=== PATIENT | male | born 1945 | race Caucasian/White ===

== ENCOUNTER 2017-02-23 09:34 | Day surgery (SDC) | payer OTHER ==
[2017-02-22 14:50] VITALS: BMI 25.8
[2017-02-23] MEDS ORDERED: PROPOFOL 20 ML ONE ×4 (11:55)
[2017-02-23 12:37] VITALS: TEMP 97.5
[2017-02-23 13:02] VITALS: PULSE 56
[2017-02-23 14:02] VITALS: BP 146/91
--- NOTE | 2017-02-24 12:57 | PATH ---
Surgical Pathology Report Patient Name: LUIS DANIEL HART [facility]. Rec. #: [id number] /Age/Gender: 1945 (Age: 71) / M Account: [id number] Location: ASU-ENDOSCOPY Taken: 02/23/2017 Received: 02/23/2017 Reported: 02/24/2017 Physicians: Sony Townsend M.D. Specimen(s) Received BX PROXIMAL TRANSVERSE COLON POLYP Clinical History History of colon polyp Polyp, diverticulosis Final Diagnosis COLON, PROXIMAL TRANSVERSE, BIOPSY: HYPERPLASTIC POLYP WITH ASSOCIATED ULCERATION. Electronically Signed Manjinder Beyer M.D. Gross Description Received in formalin, labeled "biopsy proximal transverse colon polyp" is a chapman, irregular portion of soft tissue measuring 0.3 cm. in greatest dimension. The specimen is submitted in toto in one cassette. 02/23/201702/23/2017
== END 2017-02-23 12:40 | disposition home or self-care (01) ==
LOC: JASU-ENDO 09:34
PROVIDERS: ATTEND Internal Medicine Gastroenterology
PROC: 0DBL8ZX Excision of Transverse Colon, Via Natural or Artificial Opening Endoscopic, Diagnostic (ICD-10-PCS; principal; 2017-02-23 10:30)
DX: Z12.11 Encounter for screening for malignant neoplasm of colon (principal); Z86.010 Personal history of colon polyps; D12.3 Benign neoplasm of transverse colon; K57.30 Diverticulosis of large intestine without perforation or abscess without bleeding
CPT/HCPCS: 88305-TC

== ENCOUNTER 2017-08-22 15:05 | Observation (INO) | payer OTHER, MEDICARE ==
[2017-08-22 15:18] VITALS: BMI 25.4
--- NOTE | 2017-08-22 15:55 | PDOC ---
History of Present Illness - General Chief Complaint: Syncope/Near Syncope Stated Complaint: SYNCOPE Time Seen by Provider: 08/22/17 15:11 History Source: Patient, Spouse - History of Present Illness Initial Comments: 08/22/17 15:50 Patient is a 72 yo M with a PMH of A-Fib, HTN , CVA (5 times), presented today after a syncopial episode while getting up quickly from eating at the table. His says she heard a noise on the floor and ran to see him. He woke up after a few seconds and looked pale. She said he did not have any shaking movements or post-ictal state. Patient denies this ever happening before. He denies biting his tongue, losing bladder control or hit his head. He denies SOB , chest pain, nausea, or diarrhea. 08/22/17 17:20 Past History - Past Medical History Allergies/Adverse Reactions: Allergies Allergy/AdvReac Type Severity Reaction Status Date / Time No Known Allergies Allergy Verified 08/22/17 15:18 Home Medications: Ambulatory Orders Amlodipine Besylate [Norvasc -] 2.5 mg PO HS 02/22/17 Apixaban [Eliquis] 5 mg PO DAILY 02/22/17 Atorvastatin Calcium 40 mg PO DAILY 02/22/17 Carvedilol 25 mg PO BID 02/22/17 Clonidine HCl 0.1 mg PO BID 02/22/17 Losartan Potassium 50 mg PO BID 02/22/17 Anemia: No Asthma: No Cancer: No Cardiac Disorders: No CVA: Yes (MULTIPLE STROKES) COPD: No Dementia: No Diabetes: No GI Disorders: No Disorders: No HTN: Yes Hypercholesterolemia: Yes Liver Disease: No Seizures: No Thyroid Disease: No - Surgical History Abdominal Surgery: No Appendectomy: No Cardiac Surgery: No Cholecystectomy: No Lung Surgery: No Neurologic Surgery: No Orthopedic Surgery: No - Immunization History Immunization Up to Date: Yes - Suicide/Smoking/Psychosocial Hx Smoking Status: No Smoking History: Never smoked Years of Tobacco Use: 0 Number of Cigarettes Smoked Daily: 0 Cigars Per Day: 0 Information on smoking cessation initiated: No Hx Alcohol Use: No Drug/Substance Use Hx: No Substance Use Type: None Hx Substance Use Treatment: No Cardiac Specific PMH - Complaint Specific PMHX Pacemaker: No Review of Systems - Review of Systems Constitutional: No: Chills, Diaphoresis, Fever HEENTM: No: Recent change in vision Respiratory: No: Cough, Shortness of Breath, Wheezing, Hemoptysis Cardiac (ROS): Yes: Syncope. No: Chest Pain, Palpitations : No: Incontinence Neurological: Yes: Tingling (tingling of his face before he fell). No: Headache , Paresthesia, Seizure *Physical Exam - Vital Signs Last Vital Signs Temp Pulse Resp BP Pulse Ox 98.3 F 59 L 18 158/91 98 08/22/17 20:16 08/22/17 20:16 08/22/17 20:16 08/22/17 20:16 08/22/17 20:16 - Physical Exam General Appearance: Yes: Nourished, Appropriately Dressed. No: Apparent Distress HEENT: positive: EOMI Neck: positive: Supple Respiratory/Chest: positive: Lungs Clear, Normal Breath Sounds. negative: Respiratory Distress, Rales, Rhonchi, Wheezing Gastrointestinal/Abdominal: positive: Normal Bowel Sounds, Soft. negative: Tender Neurologic: positive: child & adolescent psychiatrist II-XII NML intact, Fully Oriented, Alert, Motor Strength / ED Treatment Course - LABORATORY CBC & Chemistry Diagram: 08/22/17 16:20 08/22/17 16:20 - ADDITIONAL ORDERS Additional order review: Laboratory Results 08/22/17 08/22/17 08/22/17 16:20 16:20 16:20 PT with INR INR PTT (Actin FS) Sodium 141 Potassium 3.6 Chloride 105 Carbon Dioxide 31 Anion Gap 5 L BUN 15 Creatinine 1.3 Creat Clearance w eGFR 54.57 Random Glucose 71 L Lactic Acid 1.3 Calcium 7.5 L Total Bilirubin 1.2 H AST 15 ALT 26 Alkaline Phosphatase 65 Creatine Kinase 104 Troponin I < 0.02 B-Natriuretic Peptide 1198.90 H Total Protein 6.3 L Albumin 3.2 L Blood Type Antibody Screen 08/22/17 08/22/17 16:20 16:20 PT with INR 15.60 H INR 1.38 H PTT (Actin FS) 29.6 Sodium Potassium Chloride Carbon Dioxide Anion Gap BUN Creatinine Creat Clearance w eGFR Random Glucose Lactic Acid Calcium Total Bilirubin AST ALT Alkaline Phosphatase Creatine Kinase Troponin I B-Natriuretic Peptide Total Protein Albumin Blood Type B POSITIVE Antibody Screen Negative 08/22/17 16:20 RBC 4.71 MCV 84.8 MCHC 33.7 RDW 14.0 MPV 9.9 Neutrophils % 73.9 Lymphocytes % 13.0 Monocytes % 9.8 Eosinophils % 2.3 Basophils % 1.0 - RADIOLOGY Radiology Studies Ordered: Category Date Time Status HEAD CT WITHOUT CONTRAST [CT] Stat CT Scan 08/22/17 17:16 Taken Medical Decision Making - Medical Decision Making 08/22/17 16:01 #Syncopial Episode Possibly Orthostatic hypotension vs Cardiac Heat CT CBC, CMP, LA WNL CXR cardiac monitoring BNP: 1198.90 Hx of A-fib Admit Tele- Obs for cardiac monitoring. 08/22/17 17:15 *DC/Admit/Observation/Transfer Diagnosis at time of Disposition: Syncope Qualifiers: Syncope type: unspecified Qualified Code(s): R55 - Syncope and collapse; R55 - Syncope and collapse - Discharge Dispostion Condition at time of disposition: Fair Admit: Yes Decision to Admit order Date/Time: Decision to Admit Order Category Date Time Status Decision to Admit to Hospital Routine Admission 08/22/17 19:24 Active - Referrals Referrals: Irene Haney [Primary Care Provider] -
[2017-08-22 16:33] LABS: EOSINOPHIL 2.3 % (0-4.5); MCH 28.6 pg (25.7-33.7); MCHC 33.7 g/dl (32.0-35.9); MEAN CELL VOLUME 84.8 fl (80-96); MEAN PLT VOLUME 9.9 fl (7.5-11.1); NEUTROPHILS 73.9 % (42.8-82.8); PLATELET COUNT 157 K/MM3 (134-434); WHITE BLOOD COUNT 9.6 K/mm3 (4.0-10.0)
[2017-08-22 16:47] LABS: INR 1.38 (0.82-1.09); PROTHROMBIN TIME (PATIENT) 15.6 SEC (9.98-11.88)
[2017-08-22 16:50] LABS: ACTIVATED PTT 29.6 SECONDS (26.9-34.4)
[2017-08-22 17:04] LABS: ALBUMIN 3.2 g/dl (3.4-5.0); ANION GAP 5 (8-16); BILIRUBIN,TOTAL 1.2 mg/dL (0.2-1.0); CALCIUM 7.5 mg/dL (8.5-10.1); CO2 31 mmol/L (21-32); CREATININE 1.3 mg/dL (0.7-1.3); GLUCOSE,RANDOM 71 mg/dL (74-106); SGOT/AST 15 U/L (15-37); SGPT/ALT 26 U/L (12-78); TOT PROT 6.3 g/dl (6.4-8.2)
[2017-08-22 17:05] LABS: ALK PHOS 65 U/L (45-117); CPK 104 IU/L (39-308)
[2017-08-22 17:06] LABS: TROPONIN I < 0.02 ng/ml (0.00-0.05)
--- NOTE | 2017-08-22 17:18 | PDOC ---
Attending Attestation - Resident Resident Name: Pete Vegaashutosh - ED Attending Attestation I have performed the following: I have examined & evaluated the patient, The case was reviewed & discussed with the resident, I agree w/resident's findings & plan, Exceptions are as noted - HPI HPI: 08/22/17 17:14 72 yo M with PMH of A-Fib, HTN , CVA, presents with syncopal episode. Pt states that he got up from a seated position, subsequently felt very lightheaded, and lost consciousness. Pt denies CP/SOB/palpitations prior to or after the event. He reports feeling very weak upon awakening. Pt's did not witness the event but states that she found him on the floor after she heard a thud. She did not witness any convulsive activity. Pt denies tongue biting, denies incontinence. He states that he is now asymptomatic. Pt denies MULLIGAN/N/V. Denies neck pain. Denies weakness/numbness in any extremity. - Physicial Exam PE: 08/22/17 17:19 "GENERAL: Awake, alert, and fully oriented, in no acute distress HEAD: No signs of trauma EYES: PERRLA, EOMI, sclera anicteric, conjunctiva clear ENT: Auricles normal inspection, hearing grossly normal, nares patent, oropharynx clear without exudates. Moist mucosa NECK: Nontender, no stepoffs, Normal ROM, supple, no lymphadenopathy, JVD, or masses LUNGS: Breath sounds equal, clear to auscultation bilaterally. No wheezes, and no crackles HEART: Regular rate and rhythm, normal S1 and S2, no murmurs, rubs or gallops ABDOMEN: Soft, nontender, normoactive bowel sounds. No guarding, no rebound. No masses EXTREMITIES: Normal range of motion, no edema. No clubbing or cyanosis. No cords, erythema, or tenderness NEUROLOGICAL: Cranial nerves II through XII intact. 5/5 strength and sensation in all extremities, Normal speech, normal gait SKIN: Warm, Dry, normal turgor, no rashes or lesions noted. " - Medical Decision Making 08/22/17 17:19 72 M with syncopal episode. Likely orthostatic in the context of getting up from seated position. However, pt with afib and significant cardiac disease. Cannot rule out cardiac syncope. Labs also reveal elevated BNP. Pt with mild pitting edema on exam. No prior diagnosis of heart failure, but exam concerning for CHF. Given possibility of structural heart disease and known afib, pt will need admission for tele monitoring. - Labs, trop - CXR - CTH given fall on eliquis, though no evidence of head trauma - Admit tele
[2017-08-22 20:42] LABS: URINE APPEARANCE CLEAR; URINE BILIRUBIN NEGATIVE (NEGATIVE); URINE BLOOD NEGATIVE (NEGATIVE); URINE COLOR YELLOW; URINE GLUCOSE (UA) NEGATIVE (NEGATIVE); URINE KETONE NEGATIVE (NEGATIVE); URINE NITRITE NEGATIVE (NEGATIVE); URINE PROTEIN NEGATIVE (NEGATIVE)
--- NOTE | 2017-08-22 22:20 | HP ---
CHIEF COMPLAINT: Syncope PCP: Dr. Irene Haney ([facility]) Cigar Machine Feeder: Dr. Corona Bean ([phone]) HISTORY OF PRESENT ILLNESS: This is a 72y/o man with a past medical history of Hypertension, Afib (on Eliquis), CVA (no residual, 2014). Who presents to the ED for syncope x today. Patient reports feeling lightheaded and dizzy before getting up from the table at home, his S.O. heard a loud noise and found the patient on the floor. Patient reports having a tingling sensation to his face- now resolved. Patient denies head trauma. Patient denies fever, chills, cough, SOB, MULLIGAN, CP, AP, N/V/D , dysuria. 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., retired IT Family History: Father: Cardiac Mother: Unknown Cancer, Allergies No Known Allergies Allergy (Verified 08/22/17 15:18) HOME MEDICATIONS: Home Medications Medication Instructions Recorded Amlodipine Besylate [Norvasc -] 2.5 mg PO HS 02/22/17 Apixaban [Eliquis] 5 mg PO DAILY 02/22/17 Atorvastatin Calcium 40 mg PO DAILY 02/22/17 Carvedilol 25 mg PO BID 02/22/17 Clonidine HCl 0.1 mg PO BID 02/22/17 Losartan Potassium 50 mg PO BID 02/22/17 REVIEW OF SYSTEMS CONSTITUTIONAL: Absent: fever, chills, diaphoresis, generalized weakness, malaise, loss of appetite, weight change HEENT: Absent: rhinorrhea, nasal congestion, throat pain, throat swelling, difficulty swallowing, mouth swelling, ear pain, eye pain, visual changes CARDIOVASCULAR: syncope, lightheadedness, Absent: chest pain, palpitations, irregular heart rate, peripheral edema RESPIRATORY: Absent: cough, shortness of breath, dyspnea with exertion, orthopnea, wheezing, stridor, hemoptysis GASTROINTESTINAL: Absent: abdominal pain, abdominal distension, nausea, vomiting, diarrhea, constipation, melena, hematochezia GENITOURINARY: Absent: dysuria, frequency, urgency, hesitancy, hematuria, flank pain, genital pain MUSCULOSKELETAL: Absent: myalgia, arthralgia, joint swelling, back pain, neck pain SKIN: Absent: rash, itching, pallor HEMATOLOGIC/IMMUNOLOGIC: Absent: easy bleeding, easy bruising, lymphadenopathy, frequent infections ENDOCRINE: Absent: unexplained weight gain, unexplained weight loss, heat intolerance, cold intolerance NEUROLOGIC: dizziness Absent: headache, focal weakness or paresthesias, unsteady gait, seizure, mental status changes, bladder or bowel incontinence PSYCHIATRIC: Absent: anxiety, depression, suicidal or homicidal ideation, hallucinations. PHYSICAL EXAMINATION Vital Signs - 24 hr 08/22/17 20:16 Temperature 98.3 F Pulse Rate [ 59 L Radial] Respiratory 18 Rate Blood Pressure 158/91 [Right Arm] O2 Sat by Pulse 98 Oximetry (%) GENERAL: Awake, alert, and fully oriented, in no acute distress. HEAD: Normal with no signs of trauma. EYES: Pupils equal, round and reactive to light, extraocular movements intact, sclera anicteric, conjunctiva clear. No lid lag. EARS, NOSE, THROAT: Ears normal, nares patent, oropharynx clear without exudates. Dry mucous membranes. NECK: Normal range of motion, supple without lymphadenopathy, JVD, or masses. LUNGS: Breath sounds equal, clear to auscultation bilaterally. No wheezes, and no crackles. No accessory muscle use. HEART: Normal S1 and S2 without murmur, rub or gallop. Irregular rate and rhythm ABDOMEN: Soft, nontender, not distended, normoactive bowel sounds, no guarding, no rebound, no masses. No hepatomegaly or splenomegaly. MUSCULOSKELETAL: Normal range of motion at all joints. No bony deformities or tenderness. No CVA tenderness. UPPER EXTREMITIES: 2+ pulses, warm, well-perfused. No cyanosis. No clubbing. No peripheral edema. LOWER EXTREMITIES: 2+ pulses, warm, well-perfused. No calf tenderness. +1 B/L pitting peripheral edema. NEUROLOGICAL: Cranial nerves II-XII intact. Normal speech. Normal gait. PSYCHIATRIC: Cooperative. Good eye contact. Appropriate mood and affect. SKIN: Warm, dry, normal turgor, no rashes or lesions noted, normal capillary refill. Laboratory Results - last 24 hr 08/22/17 08/22/17 08/22/17 16:20 16:20 16:20 WBC 9.6 RBC 4.71 Hgb 13.5 Hct 39.9 MCV 84.8 MCH 28.6 MCHC 33.7 RDW 14.0 Plt Count 157 MPV 9.9 Neutrophils % 73.9 Lymphocytes % 13.0 Monocytes % 9.8 Eosinophils % 2.3 Basophils % 1.0 PT with INR 15.60 H INR 1.38 H PTT (Actin FS) 29.6 Sodium Potassium Chloride Carbon Dioxide Anion Gap BUN Creatinine Creat Clearance w eGFR Random Glucose Lactic Acid Calcium Phosphorus Magnesium Total Bilirubin AST ALT Alkaline Phosphatase Creatine Kinase Troponin I B-Natriuretic Peptide Total Protein Albumin Triglycerides Cholesterol Total LDL Cholesterol HDL Cholesterol Urine Color Urine Appearance Urine pH Ur Specific [place] Urine Protein Urine Glucose (UA) Urine Ketones Urine Blood Urine Nitrite Urine Bilirubin Urine Urobilinogen Ur Leukocyte Esterase Blood Type B POSITIVE Antibody Screen Negative 08/22/17 08/22/17 08/22/17 16:20 16:20 16:20 WBC RBC Hgb Hct MCV MCH MCHC RDW Plt Count MPV Neutrophils % Lymphocytes % Monocytes % Eosinophils % Basophils % PT with INR INR PTT (Actin FS) Sodium 141 Potassium 3.6 Chloride 105 Carbon Dioxide 31 Anion Gap 5 L BUN 15 Creatinine 1.3 Creat Clearance w eGFR 54.57 Random Glucose 71 L Lactic Acid 1.3 Calcium 7.5 L Phosphorus Magnesium Total Bilirubin 1.2 H AST 15 ALT 26 Alkaline Phosphatase 65 Creatine Kinase 104 Troponin I < 0.02 B-Natriuretic Peptide 1198.90 H Total Protein 6.3 L Albumin 3.2 L Triglycerides Cholesterol Total LDL Cholesterol HDL Cholesterol Urine Color Urine Appearance Urine pH Ur Specific [place] Urine Protein Urine Glucose (UA) Urine Ketones Urine Blood Urine Nitrite Urine Bilirubin Urine Urobilinogen Ur Leukocyte Esterase Blood Type Antibody Screen 08/22/17 08/23/17 08/23/17 20:36 06:54 06:54 WBC 7.2 RBC 4.53 Hgb 13.1 Hct 38.1 MCV 84.2 MCH 28.9 MCHC 34.3 RDW 13.9 Plt Count 154 MPV 9.9 Neutrophils % 60.3 Lymphocytes % 25.9 D Monocytes % 9.1 Eosinophils % 3.8 Basophils % 0.9 PT with INR INR PTT (Actin FS) Sodium 141 Potassium 3.2 L Chloride 105 Carbon Dioxide 30 Anion Gap 6 L BUN 15 Creatinine 1.1 Creat Clearance w eGFR Random Glucose 109 H D Lactic Acid Calcium 7.6 L Phosphorus 3.1 Magnesium 2.1 Total Bilirubin AST ALT Alkaline Phosphatase Creatine Kinase Troponin I B-Natriuretic Peptide Total Protein Albumin Triglycerides Cholesterol Total LDL Cholesterol HDL Cholesterol Urine Color Yellow Urine Appearance Clear Urine pH 7.0 Ur Specific [place] 1.010 Urine Protein Negative Urine Glucose (UA) Negative Urine Ketones Negative Urine Blood Negative Urine Nitrite Negative Urine Bilirubin Negative Urine Urobilinogen 2.0 Ur Leukocyte Esterase Negative Blood Type Antibody Screen 08/23/17 08/23/17 06:54 06:54 WBC RBC Hgb Hct MCV MCH MCHC RDW Plt Count MPV Neutrophils % Lymphocytes % Monocytes % Eosinophils % Basophils % PT with INR INR PTT (Actin FS) Sodium Potassium Chloride Carbon Dioxide Anion Gap BUN Creatinine Creat Clearance w eGFR Random Glucose Lactic Acid Calcium Phosphorus Magnesium Total Bilirubin AST ALT Alkaline Phosphatase Creatine Kinase 96 Troponin I < 0.02 B-Natriuretic Peptide Total Protein Albumin Triglycerides 73 Cholesterol 106 Total LDL Cholesterol 45 HDL Cholesterol 51 Urine Color Urine Appearance Urine pH Ur Specific [place] Urine Protein Urine Glucose (UA) Urine Ketones Urine Blood Urine Nitrite Urine Bilirubin Urine Urobilinogen Ur Leukocyte Esterase Blood Type Antibody Screen Laboratory Results - last 24 hr 08/22/17 20:36 Urine Color Yellow Urine Appearance Clear Urine pH 7.0 Urine Protein Negative Urine Glucose (UA) Negative Urine Ketones Negative Urine Blood Negative Urine Nitrite Negative Urine Bilirubin Negative Urine Urobilinogen 2.0 ASSESSMENT/PLAN: This is a 72 y/o man with a PMHx of: HTN, HLD, Afib (on Eliquis). Placed on Tele Observation for Syncope r/o ACS for further evaluation of their emergent condition. Plan: 1. Syncope - r/o ACS vs Dehydration - Tele monitoring - CT Head- no ICH - Will repeat CT tomorrow - Serial Enzymes - Appreciate Cardiology Consult - Echo in am - Carotid Doppler in am - Orthostatics - Repeat CBC, BMP in am 2. Atrial Fibrillation - [id number] Score 4 - Continue Eliquis - EKG - Afib rate controlled 3. Hypertension - Monitor BP - Will continue home meds with parameters - Monitor renal function 4. FEN - Tolerates PO Fluids - Replete lytes prn - Low Na Diet 5. DVT Prophylaxis - OOB - SCDs - Continue Eliquis Code Status: Full Code Problem List - Problem (1) Syncope Code(s): R55 - SYNCOPE AND COLLAPSE Qualifiers: Syncope type: unspecified Qualified Code(s): R55 - Syncope and collapse ; R55 - Syncope and collapse (2) A-fib Code(s): I48.91 - UNSPECIFIED ATRIAL FIBRILLATION (3) HTN (hypertension) Code(s): I10 - ESSENTIAL (PRIMARY) HYPERTENSION (4) CVA (cerebral vascular accident) Code(s): I63.9 - CEREBRAL INFARCTION, UNSPECIFIED Visit type - Emergency Visit Emergency Visit: Yes ED Registration Date: 08/22/17 Care time: The patient presented to the Emergency Department on the above date and was hospitalized for further evaluation of their emergent condition. - New Patient This patient is new to me today: Yes Date on this admission: 08/23/17 - Critical Care Critical Care patient: No
[2017-08-22 23:11] LABS: URINE LEUK ESTERASE Negative (NEGATIVE)
[2017-08-23 07:16] LABS: BASOPHIL 0.9 % (0-2.0); EOSINOPHIL 3.8 % (0-4.5); MCH 28.9 pg (25.7-33.7); MCHC 34.3 g/dl (32.0-35.9); MEAN CELL VOLUME 84.2 fl (80-96); MEAN PLT VOLUME 9.9 fl (7.5-11.1); NEUTROPHILS 60.3 % (42.8-82.8); PLATELET COUNT 154 K/MM3 (134-434); RDW 13.9 % (11.9-15.9); WHITE BLOOD COUNT 7.2 K/mm3 (4.0-10.0)
[2017-08-23 07:34] LABS: ANION GAP 6 (8-16); CALCIUM 7.6 mg/dL (8.5-10.1); CO2 30 mmol/L (21-32); CREATININE 1.1 mg/dL (0.7-1.3); GLUCOSE,RANDOM 109 mg/dL (74-106); MAGNESIUM 2.1 mg/dL (1.8-2.4); PHOSPHOROUS 3.1 mg/dL (2.5-4.9)
[2017-08-23 07:43] LABS: CHOLESTEROL 106 mg/dL (50-200); CPK 96 IU/L (39-308); TROPONIN I < 0.02 ng/ml (0.00-0.05)
[2017-08-23] MEDS ORDERED: cloNIDine HCL 0.1 MG TABLET ONE (09:53)
[2017-08-23] MEDS ORDERED: CARVEDILOL 12.5 MG TABLET (FP) ONE (09:54)
[2017-08-23] MEDS ORDERED: LOSARTAN POTASSIUM 25 MG TABLET ONE (09:55)
[2017-08-23] MEDS ORDERED: CARVEDILOL 25 MG TABLET (FP) PO SCH (10:00)
[2017-08-23] MEDS ORDERED: APIXABAN 5 MG TABLET PO SCH (10:00)
[2017-08-23] MEDS: cloNIDine HCL 0.1 MG TABLET PO SCH ×2 (10:07→21:43)
[2017-08-23] MEDS: LOSARTAN POTASSIUM 50 MG TABLET (FP) PO SCH ×2 (10:08→21:58)
--- NOTE | 2017-08-23 10:40 | CONSULT ---
Consult - text type - Consultation Consultation Note: Cardiology pt seen evaluation in progress [facility]
--- NOTE | 2017-08-23 11:39 | PN ---
Physical Exam: SUBJECTIVE: Patient seen and examined in ED waiting for bed assignment. OBJECTIVE: Vital Signs Period Temp Pulse Resp BP Sys/Helms Pulse Ox Last 24 Hr 98 F-98.3 F 56-59 18-20 118-158/73-91 96-98 GENERAL: The patient is awake, alert, and fully oriented, in no acute distress. HEAD: Normal with no signs of trauma. LUNGS: Breath sounds equal, clear to auscultation bilaterally, no wheezes, no crackles, no accessory muscle use. HEART: Regular rate and rhythm, S1, S2 without murmur, rub or gallop. ABDOMEN: Soft, nontender, nondistended, normoactive bowel sounds, no guarding, no rebound, no hepatosplenomegaly, no masses. EXTREMITIES: 2+ pulses, warm, well-perfused, no edema. NEUROLOGICAL: Cranial nerves II through XII grossly intact. Normal speech, gait not observed. Laboratory Results - last 24 hr 08/22/17 08/23/17 08/23/17 20:36 06:54 06:54 WBC 7.2 RBC 4.53 Hgb 13.1 Hct 38.1 MCV 84.2 MCH 28.9 MCHC 34.3 RDW 13.9 Plt Count 154 MPV 9.9 Neutrophils % 60.3 Lymphocytes % 25.9 D Monocytes % 9.1 Eosinophils % 3.8 Basophils % 0.9 Sodium 141 Potassium 3.2 L Chloride 105 Carbon Dioxide 30 Anion Gap 6 L BUN 15 Creatinine 1.1 Random Glucose 109 H D Calcium 7.6 L Phosphorus 3.1 Magnesium 2.1 Creatine Kinase Troponin I Triglycerides Cholesterol Total LDL Cholesterol HDL Cholesterol Urine Color Yellow Urine Appearance Clear Urine pH 7.0 Ur Specific [place] 1.010 Urine Protein Negative Urine Glucose (UA) Negative Urine Ketones Negative Urine Blood Negative Urine Nitrite Negative Urine Bilirubin Negative Urine Urobilinogen 2.0 Ur Leukocyte Esterase Negative 08/23/17 08/23/17 06:54 06:54 WBC RBC Hgb Hct MCV MCH MCHC RDW Plt Count MPV Neutrophils % Lymphocytes % Monocytes % Eosinophils % Basophils % Sodium Potassium Chloride Carbon Dioxide Anion Gap BUN Creatinine Random Glucose Calcium Phosphorus Magnesium Creatine Kinase 96 Troponin I < 0.02 Triglycerides 73 Cholesterol 106 Total LDL Cholesterol 45 HDL Cholesterol 51 Urine Color Urine Appearance Urine pH Ur Specific [place] Urine Protein Urine Glucose (UA) Urine Ketones Urine Blood Urine Nitrite Urine Bilirubin Urine Urobilinogen Ur Leukocyte Esterase Active Medications Generic Name Dose Route Start Last Admin Trade Name Gladis PRN Reason Stop Dose Admin Amlodipine Besylate 2.5 mg 08/23/17 22:00 Norvasc - PO HS LUDIN Apixaban 5 mg 08/23/17 10:00 08/23/17 10:08 apixaban - PO 5 mg DAILY LUDIN Administration Atorvastatin Calcium 80 mg 08/23/17 22:00 Lipitor - PO HS LUDIN Carvedilol 25 mg 08/23/17 10:00 08/23/17 10:08 Coreg - PO Not Given BID LUDIN Clonidine 0.1 mg 08/23/17 10:00 08/23/17 10:07 Catapres - PO Not Given BID LUDIN Losartan Potassium 50 mg 08/23/17 10:00 08/23/17 10:08 Cozaar - PO 50 mg BID LUDIN Administration ASSESSMENT/PLAN This is a 72 year-old male with a PMH significant for HTN, HLD, afib on apixaban. Placed on observation for syncopal episode. Syncope --r/o ACS: troponins neg x 2; Echo: LV normal; RV normal; mild MR; mild TR; CXR unremarkable; ECG: afib @ 75; last stress was 5 years ago; NPO after midnight for possible stress tomorrow r/o CVA --08/22 CT head: no evidence of acute hemorrhage; subacute infarct right cerebellar hemisphere; chronic lacunar infarcts in right thalamus and right gangliocapsular region --08/23 CT head: lucency in right posterior cerebellum consistent with infarct, likely late subacute/chronic; old lacunar infarct again seen; faint focal low-attenuation density in the left periventricular white matter, r/o acute/subacute lacunar infarct --MRI brain ordered --ASA given --neuro consult requested Atrial fibrillation --patient says compliant with apixaban --rate in 50's, will decrease carvedilol to 12.5mg BID; continue amlodipine --cardiology following Hypertension --continue home losartan, clonidine, amlodipine, lowered dose carvedilol Hyperlipidemia --continue Lipitor Hypokalemia --repleted DVT prophylaxis: continue apixaban Dispo: continues to require observation. Full code. Visit type - Emergency Visit Emergency Visit: Yes ED Registration Date: 08/22/17 Care time: The patient presented to the Emergency Department on the above date and was hospitalized for further evaluation of their emergent condition. - New Patient This patient is new to me today: Yes Date on this admission: 08/23/17 - Critical Care Critical Care patient: No
--- NOTE | 2017-08-23 14:46 | EKG ---
Test Reason : Blood Pressure : / mmHG Vent. Rate : 075 BPM Atrial Rate : 416 BPM P-R Int : 000 ms QRS Dur : 112 ms QT Int : 396 ms P-R-T Axes : 000 020 029 degrees QTc Int : 442 ms ATRIAL FIBRILLATION NONSPECIFIC T WAVE ABNORMALITY ABNORMAL ECG WHEN COMPARED WITH ECG OF 16-MAR-2011 14:04, ATRIAL FIBRILLATION HAS REPLACED SINUS RHYTHM T WAVE VARIATION Confirmed by COLETTE ALFARO MD ([id number]) on 08/23/2017 2:46:04 PM Referred By: Confirmed By:COLETTE ALFARO MD
[2017-08-23] MEDS ORDERED: ASPIRIN 325 MG ENTERIC COATED TABLET (FP) PO ONE (19:34)
[2017-08-23] MEDS ORDERED: cloNIDine HCL 0.1 MG TABLET PO ONE (19:47)
[2017-08-23] MEDS ORDERED: amLODIPine BESYLATE 2.5 MG TABLET (FP) PO STA (19:48)
[2017-08-23] MEDS ORDERED: CARVEDILOL 12.5 MG TABLET (FP) PO STA (19:49)
[2017-08-23] MEDS: POTASSIUM CHLORIDE TABS 20 MEQ TABLET.ER (FP) PO SCH (20:23)
[2017-08-23] MEDS: APIXABAN 5 MG TABLET PO SCH (21:58)
[2017-08-23] MEDS ORDERED: ATORVASTATIN CA 80 MG TABLET (FP) PO SCH (22:00)
[2017-08-24] MEDS: POTASSIUM CHLORIDE TABS 20 MEQ TABLET.ER (FP) PO SCH ×2 (01:04→06:52)
[2017-08-24] MEDS: LOSARTAN POTASSIUM 50 MG TABLET (FP) PO SCH (09:57)
[2017-08-24] MEDS: APIXABAN 5 MG TABLET PO SCH (09:57)
[2017-08-24] MEDS: cloNIDine HCL 0.1 MG TABLET PO SCH (09:58)
[2017-08-24] MEDS ORDERED: CARVEDILOL 25 MG TABLET (FP) PO SCH (10:00)
[2017-08-24] MEDS ORDERED: ASPIRIN COATED 81 MG TABLET.EC PO SCH (10:00)
--- NOTE | 2017-08-24 13:49 | CON.NEURO ---
Consult Consult Specialty:: NEUROLOGY-GEOFF BYRNES - History of Present Illness Chief Complaint: "I passed out" History of Present Illness: This is a 72y/o man with a past medical history of Hypertension, Afib (on Eliquis), CVA (no residual, 2014). Who presents to the ED for syncope x today. Patient reports feeling lightheaded and dizzy before getting up from the table at home, his S.O. heard a loud noise and found the patient on the floor. Patient reports having a tingling sensation to his face- now resolved. Patient denies head trauma. Patient denies fever, chills, cough, SOB, MULLIGAN, CP, AP, N/V/D , dysuria. Patient reports last Echo/Stress Test 2 years ago- normal. He reports 2 years ago had"5 strokes" but the only symptom he describes from than is right eye transient blindness. Yesterday reports got up from chair and passed out, found by , woke up without confusion, was unresponsive for a minute. He also reports facial parathesias, tingling for a few seconds when he woke up but is vague about this symptom. Denies all neurologic symptoms currently - History Source History Provided By: Patient Limitations to Obtaining History: No Limitations - Alcohol/Substance Use Hx Alcohol Use: No - Smoking History Smoking history: Never smoked Aproximately how many cigarettes per day: 0 Home Medications - Allergies Allergies/Adverse Reactions: Allergies Allergy/AdvReac Type Severity Reaction Status Date / Time No Known Allergies Allergy Verified 08/22/17 15:18 - Home Medications Home Medications: Ambulatory Orders Amlodipine Besylate [Norvasc -] 2.5 mg PO HS 02/22/17 Apixaban [Eliquis] 5 mg PO BID 02/22/17 Atorvastatin Calcium 40 mg PO DAILY 02/22/17 Carvedilol 25 mg PO BID 02/22/17 Clonidine HCl 0.1 mg PO BID 02/22/17 Losartan Potassium 50 mg PO BID 02/22/17 Physical Exam-Neuro Vital Signs: Vital Signs Temperature 97 F L 08/24/17 09:22 Pulse Rate 78 08/24/17 09:58 Respiratory Rate 20 08/24/17 09:58 Blood Pressure 147/86 08/24/17 09:22 O2 Sat by Pulse Oximetry (%) 97 08/24/17 09:24 Labs: CBC, BMP 08/23/17 06:54 08/23/17 06:54 INR, PTT INR 1.38 (0.82-1.09) H 08/22/17 16:20 - Neuro Exam Cranial Nerves II-XII Intact: No (old left central facial.) Imaging - Results Chest X-ray: Report Reviewed (Chronic right cerebellar moderate sized infarct.) Assessment/Plan Pt. with a syncopal episode, does not appear to have had a new cerebral ischemic event except very less likely a posterior circulatiuon TIA but . The report of multiple small foci of "hemorrhages" are likely old hemorrhagic infarcts with residual hemosiderin deposition and not new hemorrhages.. There is no contraindication to continuing Eliquis. Would address possible causes of cardiovascular syncope. He can have an MRA as outpt to look for post. circulation athersclerotic plaques. Thank you, Jair Blunt MD
[2017-08-24 14:36] VITALS: BP 142/72; PULSE 61; TEMP 98.3
--- NOTE | 2017-08-24 14:42 | CONSULT ---
Consult - text type - Consultation Consultation Note: Cardiology no cardiac symptoms PE normal vitals normal cardio-pulmonary exam abdomen soft no leg edema Impression: paroxysmal afib to sinus rhythm to sinus bradycardia; on apixaban stable from cardiac standpoint; no evidence of MO or CHF follows with private board winder admitted with syncope; US carotids normal, Echocardiogram unremarkable CT ? old CVA's lipids normal Rec: Discharge with close cardiac follow-up
--- NOTE | 2017-08-24 14:52 | DS ---
Physical Exam: SUBJECTIVE: Patient seen and examined oob to chair. Feels well. No episodes of lightheadedness. No chest pain, palpitations. Wants to go home. OBJECTIVE: Vital Signs Period Temp Pulse Resp BP Sys/Helms Pulse Ox Last 24 Hr 97 F-98.9 F 55-78 18-20 129-184/73-95 97-97 PHYSICAL EXAM GENERAL: The patient is awake, alert, and fully oriented, in no acute distress. LUNGS: Breath sounds equal, clear to auscultation bilaterally, no wheezes, no crackles, no accessory muscle use. HEART: Irregular. S1, S2 without murmur, rub or gallop. ABDOMEN: Soft, nontender, nondistended, normoactive bowel sounds, no guarding, no rebound, no hepatosplenomegaly, no masses. EXTREMITIES: 2+ pulses, warm, well-perfused, no edema. NEUROLOGICAL: Cranial nerves II through XII grossly intact. Normal speech, gait not observed. PSYCH: Normal mood, normal affect. SKIN: Warm, dry, normal turgor LABS CBCD WBC 7.2 K/mm3 (4.0-10.0) 08/23/17 06:54 RBC 4.53 M/mm3 (4.00-5.60) 08/23/17 06:54 Hgb 13.1 GM/dL (11.7-16.9) 08/23/17 06:54 Hct 38.1 % (35.4-49) 08/23/17 06:54 MCV 84.2 fl (80-96) 08/23/17 06:54 MCHC 34.3 g/dl (32.0-35.9) 08/23/17 06:54 RDW 13.9 % (11.9-15.9) 08/23/17 06:54 Plt Count 154 K/MM3 (134-434) 08/23/17 06:54 MPV 9.9 fl (7.5-11.1) 08/23/17 06:54 CMP Sodium 141 mmol/L (136-145) 08/23/17 06:54 Potassium 3.2 mmol/L (3.5-5.1) L 08/23/17 06:54 Chloride 105 mmol/L (98-107) 08/23/17 06:54 Carbon Dioxide 30 mmol/L (21-32) 08/23/17 06:54 Anion Gap 6 (8-16) L 08/23/17 06:54 BUN 15 mg/dL (7-18) 08/23/17 06:54 Creatinine 1.1 mg/dL (0.7-1.3) 08/23/17 06:54 Creat Clearance w eGFR 54.57 (>60) 08/22/17 16:20 Calcium 7.6 mg/dL (8.5-10.1) L 08/23/17 06:54 Total Bilirubin 1.2 mg/dL (0.2-1.0) H 08/22/17 16:20 AST 15 U/L (15-37) 08/22/17 16:20 ALT 26 U/L (12-78) 08/22/17 16:20 Alkaline Phosphatase 65 U/L (45-117) 08/22/17 16:20 Total Protein 6.3 g/dl (6.4-8.2) L 08/22/17 16:20 Albumin 3.2 g/dl (3.4-5.0) L 08/22/17 16:20 HOSPITAL COURSE: Date of Admission:08/22/17 Date of Discharge: 08/24/17 Pre hospital course 72 year-old man with a PMH significant for HTN, HLD, afib on apixaban, and multiple CVAs. Presented to the ED for a syncopal episode. Patient reported feeling lightheaded and dizzy after getting up from the table at home. His found the patient on the floor. Patient reported having a tingling sensation to his face- which resolved. Patient denied head trauma. Patient denied chest pain , palpitations, diaphoresis, SOB, and GILMORE. He denied lower extremity edema. He denied headache, fever, sweats, chills. He denied n/v/d. He did state he thought he was dehydrated as he had two large cups of coffee and no other fluids that day. Patient stated he is compliant with taking Eliquis twice daily which he was started on about two years ago after his strokes. He follows regularly with can carrier Dr. Bean at [facility]. His last echo/stress was two years ago and reportedly normal. ER course (1) CT Head- no ICH (2) Chest Xray- image no infiltrate no effusion (3) [id number] Subsequent hospital course by problem list Syncope --r/o ACS: troponins neg x 2; Echo: LV normal; RV normal; mild MR; mild TR; CXR unremarkable; ECG: afib @ 75 --seen and evaluated by cardiology Dr. Woodruff --follow up as outpatient with Dr. Bean Atrial fibrillation --on apixaban --rate in 50's, decreased carvedilol to 12.5mg BID with rate improving to 70' s; continued amlodipine r/o CVA --08/22 CT head: no evidence of acute hemorrhage; subacute infarct right cerebellar hemisphere; chronic lacunar infarcts in right thalamus and right gangliocapsular region --08/23 CT head: lucency in right posterior cerebellum consistent with infarct, likely late subacute/chronic; old lacunar infarct again seen; faint focal low-attenuation density in the left periventricular white matter, r/o acute/subacute lacunar infarct --08/23 carotids: no hemodynamically significant stenosis --08/24 MRI brain: no acute infarct; moderate to large right cerebellar hemispheric infarct seen posteriorly probably chronic (versus late subacute); additional chronic infratentorial and supratentorial infarcts are noted; numerous chronic microbleeds visualized; mild to moderate periventricular and subcortical chronic microvascular ischemic changes --seen and evaluated by neuro Dr. Blunt: does not appear to have had a new cerebral ischemic event; unlikely but possible posterior circulation TIA which can be worked up with outpatient MRA Hypertension --continued losartan, clonidine, amlodipine, lowered dose carvedilol Hyperlipidemia --continued Lipitor Hypokalemia --repleted Minutes to complete discharge: 35 Discharge Summary Reason For Visit: SYNCOPE Current Active Problems A-fib (Acute) CVA (cerebral vascular accident) (Acute) HTN (hypertension) (Acute) Syncope (Acute) Condition: Improved - Instructions Diet, Activity, Other Instructions: It is important you follow up with your can carrier and your primary care provider within one week of your discharge. They may want to do additional testing, including possibly a stress test and an MRA of your brain. Return to the emergency department for any new or worsening symptoms. Referrals: Corona Bean MD [Non Staff, Medical] - 1 Week Irene Haney [Primary Care Provider] - Disposition: HOME - Home Medications Comprehensive Discharge Medication List: Ambulatory Orders Amlodipine Besylate [Norvasc -] 2.5 mg PO HS 02/22/17 Apixaban [Eliquis] 5 mg PO BID 02/22/17 Atorvastatin Calcium 40 mg PO DAILY 02/22/17 Carvedilol 25 mg PO BID 02/22/17 Clonidine HCl 0.1 mg PO BID 02/22/17 Losartan Potassium 50 mg PO BID 02/22/17 This patient is new to me today: No Emergency Visit: Yes ED Registration Date: 08/22/17 Care time: The patient presented to the Emergency Department on the above date and was hospitalized for further evaluation of their emergent condition. Critical Care patient: No - Discharge Referral Referred to [facility] Med [facility] No
[2017-08-24] MEDS ORDERED: amLODIPine BESYLATE 2.5 MG TABLET (FP) PO SCH (22:00)
== END 2017-08-24 15:34 | disposition home or self-care (01) ==
LOC: JER 15:05 → JERBED 19:24 → J4S 08-23 18:10
PROVIDERS: ADMIT Internal Medicine; ATTEND Nurse Practitioner Acute Care
DX: R55 Syncope and collapse (principal); I10 Essential (primary) hypertension; I48.91 Unspecified atrial fibrillation; E78.5 Hyperlipidemia, unspecified; E87.6 Hypokalemia; Z86.73 Personal history of transient ischemic attack (TIA), and cerebral infarction without residual deficits; Z79.01 Long term (current) use of anticoagulants
CPT/HCPCS: 36415; 70450-TC; 70551-TC; 71020-TC; 80048; 80053; 80061; 81003; 82550; 83605; 83721; 83735; 83880; 84100; 84484; 85025; 85610; 85730; 86850; 86900; 86901; 93005; 93010; 93306-TC; 93880-TC; 99285-25; G0378